=== PATIENT | female | born 1955 | race Caucasian/White ===

== ENCOUNTER 2023-05-02 14:49 | Emergency (ER) | payer MEDICARE, BC ==
[~2023-05-02] VITALS: Ht 162.6 cm; Wt 70.5 kg
[2023-05-02] MEDS ORDERED: normal saline 1000ML IV soln IVB ONE (15:05)
[2023-05-02 15:42] LABS: BASOPHILS % (AUTO) 0.3 % (0-1); EOSINOPHILS # (AUTO) 0.2 X10'3 (0-0.9); EOSINOPHILS % (AUTO) 2.3 % (0-6); HEMATOCRIT 40.7 % (35.0-45.0); HEMOGLOBIN 13.4 g/dl (12.0-16.0); LYMPHOCYTES # (AUTO) 1.2 X10'3 (1.1-4.8); LYMPHOCYTES % (AUTO) 13.1 % (21-51); MEAN CORPUSCULAR HEMOGLOBIN 30.6 PG (27.0-31.0); MEAN CORPUSCULAR HGB CONC 32.9 g/dL (33.0-36.5); MEAN CORPUSCULAR VOLUME 92.9 FL (78-98); MEAN PLATELET VOLUME 8.9 FL (7.4-10.4); MONOCYTES # (AUTO) 0.6 X10'3 (0-0.9); MONOCYTES % (AUTO) 7.2 % (2-12); NEUTROPHILS # (AUTO) 6.9 X10'3 (1.8-7.7); NEUTROPHILS % (AUTO) 77.1 % (42-75); PLATELET COUNT 278 X10'3 (140-440); RED BLOOD COUNT 4.39 X10'6 (4.20-5.60); RED CELL DISTRIBUTION WIDTH 14.9 % (11.5-14.5); WHITE BLOOD COUNT 8.9 X10'3 (4.5-11.0)
[2023-05-02 15:50] LABS: ALANINE AMINOTRANSFERASE 14 U/L (12-78); ALBUMIN 3.2 G/DL (3.4-5.0); ALBUMIN/GLOBULIN RATIO 0.9 (1.1-1.5); ALKALINE PHOSPHATASE 84 IU/L (46-116); ANION GAP 8 (8-16); ASPARTATE AMINO TRANSFERASE 16 U/L (10-37); BILIRUBIN,TOTAL 0.2 MG/DL (0.1-1.0); BLOOD UREA NITROGEN 12 MG/DL (7-18); BUN/CREATININE RATIO 27.3 (10.0-20.0); CHLORIDE 102 MMOL/L (99-107); CREATININE 0.44 MG/DL (0.40-0.90); GLUCOSE 123 MG/DL (70-104); POTASSIUM 3.4 MMOL/L (3.5-5.1); SODIUM 140 MMOL/L (135-145); TOTAL CARBON DIOXIDE 29.6 MMOL/L (24-32); TOTAL PROTEIN 6.9 G/DL (6.4-8.2); eGFR > 90 ML/MIN
[2023-05-02 16:13] LABS: COLOR,URINE YELLOW (Yellow); GLUCOSE, URINE NEGATIVE (Neg); KETONES,URINE NEGATIVE (Neg); LEUKOCYTE ESTERASE ,URINE MODERATE (Neg); NITRITES, URINE NEGATIVE (Neg); OCCULT BLOOD,URINE SMALL (Neg); PROTEIN,URINE TRACE mg/dl (Neg); UROBILINOGEN,URINE 0.2 E.U/dL (0.2-1.0)
[2023-05-02 16:21] LABS: UA COLLECTION TYPE FOLEY CATH
[2023-05-02 16:22] LABS: CLARITY,URINE Cloudy (Clear)
[2023-05-02 16:23] LABS: WBC,URINE TNTC /HPF (0-4)
[2023-05-02 16:24] LABS: BACTERIA,URINE 4+ /HPF (Neg); SQUAMOUS EPITHELIAL CELL,UR NONE SEEN /LPF (FEW)
[2023-05-02] MEDS ORDERED: FOSFOMYCIN TROMETHAMINE 3 GM PACKET PO ONE (16:45)
--- NOTE | 2023-05-02 17:47 | NUR ---
TRANSPORT VIA [facility] [employer] ARRANGED
[2023-05-02 18:42] VITALS: BP 122/65
== END 2023-05-02 18:46 | disposition home or self-care (01) ==
LOC: ER 14:49
DX: N39.0 Urinary tract infection, site not specified (principal); Z88.0 Allergy status to penicillin
CPT/HCPCS: 36415; 74176; 80053; 81001; 84145; 85025; 87077; 87088; 87186; 99284; J7030

== ENCOUNTER 2023-12-07 10:42 | Outpatient (CLI) | payer MEDICARE, BC | END 2023-12-07 23:59 | disposition home or self-care (01) | LOC: RAD 10:42 | PROVIDERS: ATTEND Urology | DX: N39.0 Urinary tract infection, site not specified (principal); R39.82 Chronic bladder pain | CPT/HCPCS: 76770 ==

== ENCOUNTER 2024-08-08 10:38 | Outpatient (CLI) | payer MEDICARE, BC ==
[2024-08-07 13:42] LABS: BASOPHILS % (AUTO) 0.4 % (0-1); EOSINOPHILS # (AUTO) 0.2 X10'3 (0-0.9); EOSINOPHILS % (AUTO) 3.4 % (0-6); HEMOGLOBIN 13.8 g/dl (12.0-16.0); LYMPHOCYTES # (AUTO) 1.5 X10'3 (1.1-4.8); LYMPHOCYTES % (AUTO) 22.5 % (21-51); MEAN CORPUSCULAR HEMOGLOBIN 31.1 PG (27.0-31.0); MEAN CORPUSCULAR HGB CONC 33.8 g/dL (33.0-36.5); MEAN CORPUSCULAR VOLUME 92.2 FL (78-98); MEAN PLATELET VOLUME 8.5 FL (7.4-10.4); MONOCYTES # (AUTO) 0.8 X10'3 (0-0.9); MONOCYTES % (AUTO) 12.3 % (2-12); NEUTROPHILS # (AUTO) 4.1 X10'3 (1.8-7.7); NEUTROPHILS % (AUTO) 61.4 % (42-75); PLATELET COUNT 237 X10'3 (140-440); RED BLOOD COUNT 4.45 X10'6 (4.20-5.60); RED CELL DISTRIBUTION WIDTH 14.8 % (11.5-14.5); WHITE BLOOD COUNT 6.6 X10'3 (4.5-11.0)
[2024-08-07 13:46] LABS: HEMOGLOBIN A1C 5.8 % (4.5-6.2)
[2024-08-07 13:52] LABS: ALANINE AMINOTRANSFERASE 13 U/L (12-78); ALBUMIN 3.1 G/DL (3.4-5.0); ALBUMIN/GLOBULIN RATIO 0.8 (1.1-1.5); ALKALINE PHOSPHATASE 104 IU/L (46-116); ANION GAP 6 (8-16); ASPARTATE AMINO TRANSFERASE 18 U/L (10-37); BILIRUBIN,TOTAL 0.2 MG/DL (0.1-1.0); BLOOD UREA NITROGEN 10 MG/DL (7-18); BUN/CREATININE RATIO 21.7 (10.0-20.0); CALCIUM 8.6 MG/DL (8.5-10.1); CHLORIDE 105 MMOL/L (99-107); CREATININE 0.46 MG/DL (0.40-0.90); GLUCOSE 149 MG/DL (70-104); POTASSIUM 3.1 MMOL/L (3.5-5.1); SODIUM 141 MMOL/L (135-145); TOTAL CARBON DIOXIDE 29.6 MMOL/L (24-32); TOTAL PROTEIN 6.9 G/DL (6.4-8.2); eGFR > 90 ML/MIN
[~2024-08-08 10:38] MED LIST: GADOTERATE MEGLUMINE 7.5 MMOL/15 ML VIAL IV ONE
[2024-08-09 11:14] LABS: IMMUNOGLOBULIN A, QN, SERUM 482 mg/dL (87-352); IMMUNOGLOBULIN G, QN, SERUM 948 mg/dL (586-1602); IMMUNOGLOBULIN M, QN, SERUM 103 mg/dL (26-217)
[2024-08-10 09:25] LABS: ALBUMIN 3.3 g/dL (2.9-4.4); ALPHA-1-GLOBULIN 0.3 g/dL (0.0-0.4); ALPHA-2-GLOBULIN 0.8 g/dL (0.4-1.0); BETA GLOBULIN 1.3 g/dL (0.7-1.3); GAMMA GLOBULIN 0.8 g/dL (0.4-1.8); GLOBULIN, TOTAL 3.2 g/dL (2.2-3.9); M-SPIKE Not Observed g/dL (Not Observed); PROTEIN, TOTAL, SERUM 6.5 g/dL (6.0-8.5)
== END 2024-08-08 23:59 | disposition home or self-care (01) ==
LOC: MRI 10:38
PROVIDERS: ATTEND Student in an Organized Health Care Education/Training Program
DX: I67.82 Cerebral ischemia (principal); M47.817 Spondylosis without myelopathy or radiculopathy, lumbosacral region; M47.813 Spondylosis without myelopathy or radiculopathy, cervicothoracic region; M51.27 Other intervertebral disc displacement, lumbosacral region; M48.03 Spinal stenosis, cervicothoracic region; K80.20 Calculus of gallbladder without cholecystitis without obstruction; M79.2 Neuralgia and neuritis, unspecified; J98.11 Atelectasis; M48.07 Spinal stenosis, lumbosacral region; M43.8X6 Other specified deforming dorsopathies, lumbar region; G31.9 Degenerative disease of nervous system, unspecified; D86.89 Sarcoidosis of other sites
CPT/HCPCS: 36415; 70553; 72156; 72157; 72158; 80053; 82607; 82784; 83036; 83921; 84155; 84165; 85025; 86334; A9575

== ENCOUNTER 2024-08-16 03:05 | Emergency (ER) | payer MEDICARE, BC ==
[~2024-08-16] VITALS: Ht 162.6 cm; Wt 81.8 kg
[2024-08-16 03:11] VITALS: TEMP 97.7
[2024-08-16] MEDS: ondansetron/PF 4mg/2ml inj IV ONE (03:15)
[2024-08-16] MEDS ORDERED: iohexol 300mg/ml 100ml inj. ONE (04:53)
[2024-08-16] MEDS: normal saline 1000ML IV soln IVB ONE ×2 (04:54→06:44)
[2024-08-16 05:25] LABS: BASOPHILS % (AUTO) 0.4 % (0-1); EOSINOPHILS # (AUTO) 0.3 X10'3 (0-0.9); HEMATOCRIT 40.9 % (35.0-45.0); HEMOGLOBIN 14.2 g/dl (12.0-16.0); LYMPHOCYTES # (AUTO) 2.2 X10'3 (1.1-4.8); LYMPHOCYTES % (AUTO) 25.9 % (21-51); MEAN CORPUSCULAR HGB CONC 34.7 g/dL (33.0-36.5); MEAN CORPUSCULAR VOLUME 92.3 FL (78-98); MEAN PLATELET VOLUME 8.7 FL (7.4-10.4); MONOCYTES # (AUTO) 0.7 X10'3 (0-0.9); MONOCYTES % (AUTO) 8.5 % (2-12); NEUTROPHILS # (AUTO) 5.3 X10'3 (1.8-7.7); NEUTROPHILS % (AUTO) 62.2 % (42-75); PLATELET COUNT 278 X10'3 (140-440); RED BLOOD COUNT 4.43 X10'6 (4.20-5.60); RED CELL DISTRIBUTION WIDTH 14.6 % (11.5-14.5); WHITE BLOOD COUNT 8.5 X10'3 (4.5-11.0)
[2024-08-16 05:26] LABS: BILIRUBIN,URINE NEGATIVE (Neg); CLARITY,URINE CLEAR (Clear); COLOR,URINE YELLOW (Yellow); GLUCOSE, URINE NEGATIVE (Neg); KETONES,URINE NEGATIVE (Neg); LEUKOCYTE ESTERASE ,URINE NEGATIVE (Neg); NITRITES, URINE NEGATIVE (Neg); OCCULT BLOOD,URINE TRACE-INTACT (Neg); PROTEIN,URINE NEGATIVE (Neg); UROBILINOGEN,URINE 0.2 E.U/dL (0.2-1.0)
[2024-08-16 05:29] LABS: ALBUMIN 3.2 G/DL (3.4-5.0); ANION GAP 7 (8-16); BLOOD UREA NITROGEN 16 MG/DL (7-18); BUN/CREATININE RATIO 26.7 (10.0-20.0); CHLORIDE 103 MMOL/L (99-107); GLUCOSE 94 MG/DL (70-104); LIPASE 30 U/L (16-77); POTASSIUM 3.7 MMOL/L (3.5-5.1); SODIUM 138 MMOL/L (135-145); TOTAL CARBON DIOXIDE 27.6 MMOL/L (24-32); eCRCL 75 ML/MIN; eGFR > 90 ML/MIN
[2024-08-16 05:32] LABS: UA COLLECTION TYPE FOLEY CATH
[2024-08-16 05:34] LABS: BACTERIA,URINE FEW /HPF (Neg); CAL OXALATE CRYSTALS 1+ /HPF (NEGATIVE); MUCUS STRANDS MODERATE /LPF (Neg); RBC,URINE 50-100 /HPF (0-2); SQUAMOUS EPITHELIAL CELL,UR FEW /LPF (FEW)
[2024-08-16 05:38] LABS: CALCIUM 8.7 MG/DL (8.5-10.1)
[2024-08-16] MEDS: morphine 4 MG/ML inj SYRINge IV PRN (06:20)
[2024-08-16] MEDS: CefTRIAXone/D5W-Rocephin 1gm 50 ML IV ONE (06:39)
[2024-08-16] MEDS: magnesium hydroxide 30ml (MOM) UD suspension PO ONE (06:44)
[2024-08-16] MEDS: lactulose 20gm/30ml cup PO ONE (06:44)
[2024-08-16] MEDS ORDERED: CEFU250T95 PO (07:13)
[2024-08-16 08:47] VITALS: BP 126/78; PULSE 74; RESP 16; O2SAT 95
== END 2024-08-16 10:06 | disposition home or self-care (01) ==
LOC: ER 03:06
DX: Z88.0 Allergy status to penicillin (principal); Z79.899 Other long term (current) drug therapy; K59.00 Constipation, unspecified; N39.0 Urinary tract infection, site not specified; K80.20 Calculus of gallbladder without cholecystitis without obstruction
CPT/HCPCS: 36415; 71045; 74177; 80048; 81001; 83690; 84484; 85025; 87088; 93005; 96361; 96365; 99285; J0696; J7030; Q9967